=== PATIENT | male | born 1995 | race Caucasian/White ===

== ENCOUNTER 2017-02-26 21:54 | Emergency (ER) | payer OTHER ==
[2017-02-26 22:01] VITALS: TEMP 99.3
[2017-02-26] MEDS ORDERED: ACETAMINOPHEN 500 MG TAB PO ONE (22:19)
[2017-02-26] MEDS ORDERED: IBUPROFEN 200 MG TAB PO ONE (22:20)
--- NOTE | 2017-02-26 22:27 | EDPHY ---
H & P Stated Complaint: ROLLED L ANKLE ON LAST STEP Time Seen by Provider: 02/26/17 22:15 HPI/ROS: HPI The patient presents with left ankle pain which began at approximately 7:30 p.m. tonight. He was walking downstairs into an exam room and missed a stair, he inverted his left ankle and had pain immediately. He has been unable to walk since. The pain is severe, lateral, aching, associated with edema. He took his exam and then was able to make his way to the emergency department. He denies any other complaints. He has no prior history of left ankle injury.. REVIEW OF SYSTEMS Constitutional: No fever, no chills. Skin: No rashes. Neurological: No headache. PMHx: Healthy Soc Hx: College student, taking a physics class PHYSICAL General Appearance: Alert, no distress Eyes: Pupils equal and round no pallor or injection ENT, Mouth: Mucous membranes moist Respiratory: Breathing comfortably Neurological: A&O, moves all extremities Skin: Warm and dry, no rashes Musculoskeletal: Neck is supple non tender Extremities: Left ankle with limited range of motion secondary to pain, there is edema overlying the lateral malleolus, there is sensation intact to light touch throughout the foot and leg, cap refill is brisk, there is 2+ DP pulses Psychiatric: Patient is oriented X 3, there is no agitation Source: Patient Exam Limitations: No limitations - Personal History Current Tetanus/Diphtheria Vaccine: Yes Current Tetanus Diphtheria and Acellular Pertussis (TDAP): Yes - Medical/Surgical History Hx Asthma: No Hx Chronic Respiratory Disease: No Hx Diabetes: No Hx Cardiac Disease: No Hx Renal Disease: No Hx Cirrhosis: No Hx Alcoholism: No Hx HIV/AIDS: No Hx Splenectomy or Spleen Trauma: No Other PMH: ORTH R SHOULDER, WISDOM TEETH - Social History Smoking Status: Never smoked Constitutional: Initial Vital Signs Temperature (C) 37.4 C 02/26/17 21:57 Heart Rate 94 02/26/17 21:57 Respiratory Rate 18 02/26/17 21:57 Blood Pressure 120/71 02/26/17 21:57 O2 Sat (%) 95 02/26/17 21:57 O2 Delivery Mode Room Air O2 (L/minute) 36.9 Allergies/Adverse Reactions: No Known Allergies Allergy (Unverified 02/26/17 22:01) Home Medications: Medication Instructions Recorded Multivitamin [Zoo Chews] 1 each PO 02/26/17 Medical Decision Making - Diagnostics Imaging Results: Imaging Impressions Ankle X-Ray 02/26/17 22:19 Impression: Negative for fracture. Procedures: SPLINT Procedure: Splint placement. A Velcro ankle splint was applied to the left ankle by the tech. After application of the splint I returned and re-examined the patient. The splint was adequately immobilizing the joint and distal to the splint the patient's circulation and sensation was intact. Differential Diagnosis: This is a 21-year-old healthy male who presents with left ankle injury which occurred about 3 hours prior to presentation, he inverted his ankle while walking. He has edema and limited range of motion of the joint. Differential diagnosis includes ankle sprain, ankle fracture, less likely ankle dislocation. The patient was given ibuprofen and Tylenol in the emergency department. X- rays were performed and revealed likely ankle sprain. He was placed in a stirrup brace and discharged with crutches. I have given him follow-up for Orthopedics as needed and have discussed treatment of ankle sprain with him. - Data Points Medications Given: Discontinued Medications Acetaminophen (Tylenol) 1,000 mg PO EDNOW ONE Stop: 02/26/17 22:20 Last Admin: 02/26/17 22:29 Dose: 1,000 mg Ibuprofen (Motrin) 400 mg PO EDNOW ONE Stop: 02/26/17 22:21 Last Admin: 02/26/17 22:29 Dose: 400 mg Departure - Departure Disposition: Home, Routine, Self-Care Clinical Impression: Ankle sprain Condition: Good Instructions: Ankle Sprain (ED), Ankle Stirrup Splint (ED) Additional Instructions: I recommend that you take ibuprofen 400 mg and acetaminophen 650 mg every 6 hours as needed for pain. You should use the crutches as needed for the next few days until your ankle is feeling better. If you have continued pain beyond 1-2 weeks, I have given you the information for orthopedics follow-up with Dr. Vann. Referrals: Kami Vann MD [Medical Doctor] - As per Instructions Stand Alone Forms: Physical Education Excuse, Work Excuse
[2017-02-26 23:32] VITALS: BP 128/79; PULSE 83; RESP 16; O2SAT 96
== END 2017-02-26 23:30 | disposition home or self-care (01) ==
DX: S93.402A Sprain of unspecified ligament of left ankle, initial encounter (principal); X58.XXXA Exposure to other specified factors, initial encounter
CPT/HCPCS: L4350

== ENCOUNTER 2018-11-15 22:01 | Emergency (ER) | payer OTHER | END 2018-11-15 22:58 | disposition home or self-care (01) ==